=== PATIENT | female | born 1955 | race Two or more races ===

== ENCOUNTER 2024-04-21 12:08 | Inpatient (IN) | payer MEDICARE, MEDICAID ==
[~2024-04-21] VITALS: Ht 149.9 cm; Wt 57.9 kg
[2024-04-21 13:09] LABS: Basophils # (auto) 0 10 ^3/uL (0-0.2); Basophils % (auto) 0.4 % (0.0-2.0); Eosinophils # (auto) 0.1 10 ^3/uL (0-0.8); Eosinophils % (auto) 0.5 % (0.0-7.0); Hematocrit 45.6 % (36.0-46.0); Hemoglobin 15.4 g/dL (12.2-16.2); Lymphocytes # (auto) 0.9 10 ^3/uL (0.4-5.4); Lymphocytes % (auto) 9.1 % (10.0-50.0); Mean Corpuscular Hemoglobin 30.9 pg (28.0-32.0); Mean Corpuscular Hgb Conc. 33.7 g/dL (32.0-36.0); Mean Corpuscular Volume 91.7 fL (80.0-100.0); Monocytes # (auto) 0.6 10 ^3/uL (0-1.3); Monocytes % (auto) 6.3 % (0.0-12.0); Neutrophils # (auto) 8.6 10 ^3/uL (1.6-8.6); Neutrophils % (auto) 83.7 % (37.0-80.0); Platelet Count (auto) 411 10^3/uL (140-450); Red Blood Cells 4.97 10^6/uL (4.0-5.20); White Blood Cell 10.3 10^3/uL (4.4-10.8)
[2024-04-21] MEDS: SODIUM CHLORIDE 0.9% 500 ML IV ONE (13:10)
[2024-04-21 13:28] LABS: Alanine Aminotransferase 16 U/L (7-40); Albumin 4.8 g/dL (3.2-4.8); Alkaline Phosphatase 96 U/L (46-116); Anion Gap 11 (5-15); Aspartate Aminotransferase 11 U/L (13-40); BUN/Creatinine Ratio 8.5 (10.0-20.0); Bilirubin, Total 0.7 mg/dL (0.2-1.0); Blood Urea Nitrogen 13 mg/dL (9-23); Calcium 9.3 mg/dL (8.7-10.4); Carbon Dioxide 22 mmol/L (20-31); Chloride 104 mmol/L (98-107); Glucose 204 mg/dL (74-106); Potassium 4.1 mmol/L (3.5-5.1); Sodium 137 mmol/L (136-145); Total Protein 7.5 g/dL (5.7-8.2)
[2024-04-21 16:09] LABS: Urine Bacteria FEW /hpf (None Seen); Urine Blood 1+ /uL (Negative); Urine Clarity Ex.Turbid (Clear); Urine Color Light-Orange (Yellow); Urine Hyaline Cast MOD /lpf (0 - 2); Urine Mucus FEW (None Seen); Urine Protein, UAD 1+ (Negative); Urine Specific Gravity 1.017 (1.001-1.035); Urine Urobilinogen Normal (Negative); Urine WBC 692 /hpf (0 - 5); Urine WBC Clumps PRESENT /hpf (None Seen); Urine pH 5.5 (5.0-9.0)
[2024-04-21] MEDS: cefTRIAXone 1GM/50ML D5W 50 ML IV ONE (21:03)
[2024-04-21 21:14] VITALS: PULSE 62; RESP 16; O2SAT 94
[2024-04-21] MEDS ORDERED: traMADol HCL 50 MG TAB PO PRN (23:00)
[2024-04-21] MEDS ORDERED: MORPHINE SULFATE INJ 2 MG/ml SYRG IV PRN (23:00)
[2024-04-21] MEDS ORDERED: ACETAMINOPHEN 500 MG TAB PO PRN (23:00)
[2024-04-21 23:09] LABS: Amphetamine Screen, Urine Neg (NEGATIVE); Barbiturate Scree,Urine Neg (NEGATIVE); Benzodiazephine Screen, Urine Neg (NEGATIVE); Cocaine Screen, Urine Neg (NEGATIVE); Opiate Scree,Urine Pos (NEGATIVE); Phencyclidine Screen, Urine Neg (NEGATIVE)
[2024-04-21 23:10] LABS: Cannabinoid Screen, Urine Neg (NEGATIVE)
[2024-04-21 23:43] LABS: COVID19 ANTIGEN SOFIA FIA NEGATIVE (NEGATIVE)
[2024-04-21] MEDS: SODIUM CHLORIDE 0.9% 1,000 ML IV ONE (23:52)
[2024-04-22] MEDS ORDERED: DEXTROSE (50%) 50ML SYRG IV PRN (00:45)
[2024-04-22] MEDS: ACCU-CHEK COMFORT CURVE STRIP VI SCH (04:52)
[2024-04-22] MEDS: InsuLIN REG 1unit/0.01ml Soln (100units/ml) SC SCH (04:54)
[2024-04-22] MEDS: MAGNESIUM OXIDE 400 MG TAB PO ONE (04:57)
[2024-04-22 05:28] LABS: Anion Gap 11 (5-15); Carbon Dioxide 22 mmol/L (20-31); Chloride 106 mmol/L (98-107); Potassium 3.6 mmol/L (3.5-5.1); Sodium 139 mmol/L (136-145)
[2024-04-22 05:30] LABS: Calcium 9.2 mg/dL (8.7-10.4)
[2024-04-22 05:34] LABS: Glucose 181 mg/dL (74-106)
[2024-04-22 05:35] LABS: BUN/Creatinine Ratio 15.2 (10.0-20.0); Blood Urea Nitrogen 14 mg/dL (9-23)
[2024-04-22] MEDS: MAGNESIUM SULFATE 1GM/100ML 100 ML IV SCH ×3 (06:06→16:00)
[2024-04-22] MEDS: INSULIN LANTUS (GLARGINE) 1 /0.01ml (100units/ml) SC SCH (07:00)
[2024-04-22] MEDS: POTASSIUM EFFERVESENT TAB 25 MEQ GT ONE (08:57)
[2024-04-22] MEDS: ENOXAPARIN SOD 30 MG/0.3 ML SYRINGE SC ONE (08:57)
[2024-04-22] MEDS: PANTOPRAZOLE 40 MG TAB PO ONE (09:02)
[2024-04-22 09:25] VITALS: PULSE 129; RESP 22; O2SAT 94
[2024-04-22 10:01] LABS: Basophils # (auto) 0 10 ^3/uL (0-0.2); Basophils % (auto) 0.3 % (0.0-2.0); Eosinophils # (auto) 0 10 ^3/uL (0-0.8); Eosinophils % (auto) 0.6 % (0.0-7.0); Hematocrit 40.3 % (36.0-46.0); Hemoglobin 13.9 g/dL (12.2-16.2); Lymphocytes % (auto) 14.6 % (10.0-50.0); Mean Corpuscular Hemoglobin 31.8 pg (28.0-32.0); Mean Corpuscular Hgb Conc. 34.6 g/dL (32.0-36.0); Mean Corpuscular Volume 92.1 fL (80.0-100.0); Monocytes # (auto) 0.3 10 ^3/uL (0-1.3); Monocytes % (auto) 3.8 % (0.0-12.0); Neutrophils # (auto) 5.7 10 ^3/uL (1.6-8.6); Neutrophils % (auto) 80.7 % (37.0-80.0); Platelet Count (auto) 316 10^3/uL (140-450); Red Blood Cells 4.38 10^6/uL (4.0-5.20); White Blood Cell 7.1 10^3/uL (4.4-10.8)
[2024-04-22] MEDS: cefTRIAXone 1GM/50ML D5W 50 ML IV SCH (12:53)
[2024-04-22] MEDS: CYANOCOBALAMIN (B-12) 1000 MCG/1 ML VIAL IM ONE (16:42)
[2024-04-22] MEDS: ERGOCALCIFEROL 50,000 UNIT(1.25MG) CAP PO SCH (16:42)
[2024-04-22 21:20] VITALS: PULSE 115; RESP 14; O2SAT 96
[2024-04-22 23:26] VITALS: BP 136/91; PULSE 108; RESP 17; TEMP 98; O2SAT 95
[2024-04-23] VITALS (8 sets, daily range): BP systolic 125–156; BP diastolic 71–92; PULSE 58–123; RESP 18–19; TEMP 97.6–98.1; O2SAT 93–99
[2024-04-23] MEDS: PANTOPRAZOLE 40 MG TAB PO SCH (06:25)
[2024-04-23] MEDS: CYANOCOBALAMIN (B-12) 1000 MCG/1 ML VIAL IM SCH (10:55)
[2024-04-24 01:00] VITALS: BP 129/94; PULSE 69; RESP 19; TEMP 97; O2SAT 95
[2024-04-24 05:00] VITALS: BP 119/43; PULSE 82; RESP 17; TEMP 97.6; O2SAT 94
[2024-04-24 07:30] VITALS: PULSE 85; RESP 14; O2SAT 95
[2024-04-24 09:00] VITALS: BP 145/88; PULSE 144; RESP 17; TEMP 97.8; O2SAT 93
[2024-04-24] MEDS ORDERED: HYDR-4072 (09:08)
[2024-04-24] MEDS ORDERED: FLUT1AER3 PO (09:08)
[2024-04-24] MEDS ORDERED: METH2.5T62 PO (09:08)
[2024-04-24] MEDS ORDERED: FAMO20TA10 PO (09:08)
[2024-04-24] MEDS ORDERED: GABA800T97 PO (09:08)
[2024-04-24] MEDS ORDERED: INSUINJ37 SC (09:08)
[2024-04-24] MEDS ORDERED: CEFD300C2 PO (10:14)
[2024-04-24 11:45] VITALS: BP 148/86; PULSE 85; RESP 18; TEMP 99; O2SAT 99
[2024-04-24] MEDS: CYANOCOBALAMIN 500 MCG TAB PO SCH (11:53)
[2024-04-24 12:19] VITALS: BP 156/106; PULSE 99; RESP 17; TEMP 97.9; O2SAT 94
== END 2024-04-24 12:35 | disposition home or self-care (01) | DRG 391 ==
LOC: ER 12:08 → OVERFLOW 04-22 → WEST WING 04-22 22:19
PROVIDERS: ADMIT Internal Medicine; ATTEND Internal Medicine
DX: K52.9 Noninfective gastroenteritis and colitis, unspecified (principal); N17.0 Acute kidney failure with tubular necrosis; N30.00 Acute cystitis without hematuria; E83.42 Hypomagnesemia; E11.9 Type 2 diabetes mellitus without complications; F17.210 Nicotine dependence, cigarettes, uncomplicated; I10 Essential (primary) hypertension; M06.9 Rheumatoid arthritis, unspecified; Z20.822 Contact with and (suspected) exposure to COVID-19; J44.9 Chronic obstructive pulmonary disease, unspecified; Z98.51 Tubal ligation status
CPT/HCPCS: 36415; 71045; 74018; 80048; 82962; 83735; 87086; 93005; 96365; G0378; J1815

== ENCOUNTER 2024-06-14 08:19 | Inpatient (IN) | payer MEDICARE, MEDICAID ==
[~2024-06-14] VITALS: Ht 154.9 cm; Wt 61.2 kg
[~2024-06-14 08:19] MED LIST: CEFD300C2 PO; FAMO20TA10 PO; FLUT1AER3 PO; GABA800T97 PO; HYDR-4072; INSUINJ37 SC; METH2.5T62 PO
[2024-06-14 09:00] VITALS: PULSE 135; RESP 16; O2SAT 90
--- NOTE | 2024-06-14 10:05 | ED.PDOC ---
Musculoskeletal HPI Comments 68 year old female EMILY presents to the ED with chief complaint of left knee pain. Patient reports that when getting out of bed this morning, her left knee had locked up and she slid off of her bed. Patient relays that since then, she has had pain to her left knee and is unable to move it well. Patient states she also has not taken any of her daily medication. Patient denies any numbness, weakness, dizziness, N/V, chest pain, or SOB. Chief Complaint: Fall Injury Time Seen by MD: 10:00 Primary Care Provider: UNKNOWN Reviewed Notes: Nurses Notes, Medications, Allergies Allergies: Coded Allergies: NO KNOWN ALLERGIES (Unverified , 04/21/24) Home Meds Active Scripts Cefdinir (Cefdinir) 300 Mg Cap, 1 CAP PO BID for 5 Days, #14 CAP Prov:MARIA LUZ BROCK RESIDENT 04/24/24 Reported Medications Insulin Glargine (Lantus Solostar) 100 Unit/Ml Inj, 38 UNIT SC 04/24/24 Wxfhdrsakvs-Nziphnazjwgs-Oaanf (Trelegy Ellipta 100-62.5-25 Mcg/INH) 1 Aer Aer, 1 PUFF PO DAILY 04/24/24 Methotrexate (Methotrexate Sodium) 2.5 Mg Tab, 4 TAB PO QWEEKLY 04/24/24 Famotidine (PEPCID TABLET) 20 Mg Tb, 1 TAB PO DAILYPRN PRN for indigestion 04/24/24 Hydrocodone-Acetaminophen (Hydrocodone/Acetaminophen 10-325 mg) 1 Tab Tab 04/24/24 Gabapentin (Gabapentin) 800 Mg Tab, 1 TAB PO TID 04/24/24 Information Source: Patient Mode of Arrival: EMS Location: Left Extremity Location: Knee Timing: Hours Prehospital treatment: None Severity: Moderate Able to Move Extremity: Yes Bear Weight: Limited Pain: Moderate Mechanism: Spontaneous Circumstances: Fall Onset of Symptoms: Spontaneous Symptoms: Pain DVT Risk Factors: NONE Last Tetanus: Unknown Associated signs and symptoms: Knee pain Past Medical History PAST MEDICAL HISTORY: Arthritis, DM, HTN Surgical History: Tubal Ligation Surgical History (Other): Lt toe amputation, Open heart surgery HOME AGENT History: No Pertinent HOME AGENT History Family History Family History: Unknown Social History Smoker: Cigarettes, Less Than 1 Pack/Day Alcohol: Denies ETOH Use Drugs: Denies Drug Use Lives In: Home Constitutional: denies: chills, diaphoresis, fatigue, fever, malaise, sweats, weakness, others EENTM: denies: blurred vision, double vision, ear bleeding, ear discharge, ear drainage, ear pain, ear ringing, eye pain, eye redness, hearing loss, mouth pain, mouth swelling, nasal discharge, nose bleeding, nose congestion, nose pain, photophobia, tearing, throat pain, throat swelling, voice changes, others Respiratory: denies: cough, hemoptysis, orthopnea, SOB at rest, shortness of breath, SOB with excertion, stridor, wheezing, others Cardiovascular: denies: chest pain, dizzy spells, diaphoresis, Dyspnea on exertion, edema, irregular heart beat, left arm pain, lightheadedness, palpitations, PND, syncope, others Gastrointestinal: denies: abdomen distended, abdominal pain, blood streaked bowels, constipated, diarrhea, dysphagia, difficulty swallowing, hematemesis, melena, nausea, poor appetite, poor fluid intake, rectal bleeding, rectal pain, vomiting, others Genitourinary: denies: abnormal vagina bleeding, burning, dyspareunia, dysuria, flank pain, frequency, hematuria, incontinence, pain, , vagina discharge, urgency, others Neurological: denies: dizziness, fainting, headache, left sided numbness, left sided weakness, numbness, paresthesia, pre-existing deficit, right sided numbness, right sided weakness, seizure, speech problems, tingling, tremors, weakness, others Musculoskeletal: reports: others (Left knee pain); denies: back pain, gout, joint pain, joint swelling, muscle pain, muscle stiffness, neck pain Integumetry: denies: bruises, change in color, change in hair/nails, dryness, laceration, lesions, lumps, rash, wounds, others Allergic/Immunocompromised: denies: Difficulty Healing, Frequent Infections, Hives, Itching, others Hematologic/Lymphatic: denies: anemia, blood clots, easy bleeding, easy bruising, swollen glands, others Endocrine: denies: excessive hunger, excessive sweating, excessive thirst, excessive urination, flushing, intolerance to cold, intolerance to heat, unexplained weight gain, unexplained weight loss, others Psychiatric: denies: anxiety, bipolar disorder, depression, hopeless, panic disorder, schizophrenia, sleepless, suicidal, others All Other Systems: Reviewed and Negative Physical Exam General Appearance: Mild Distress, Normal HEENT: Normal ENT Inspection, PERRL/EOMI, Other (Dry mucosa) Neck: Full Range of Motion, Non-Tender, Normal, Normal Inspection Respiratory: Chest Non-Tender, Lungs Clear, No Accessory Muscle Use, No Respiratory Distress, Normal Breath Sounds Cardiovascular: No Edema, No JVD, No Murmur, No Gallop, Normal Peripheral Pulses, Regular Rate/Rhythm Breast Exam: Deferred Gastrointestinal: No Organomegaly, Non Tender, No Pulsatile Mass, Normal Bowel Sounds, Soft Genitalia: Deferred Pelvic: Deferred Rectal: Deferred Extremities: No calf tenderness, Normal capillary refill, Normal inspection, Normal range of motion, Non-tender, No pedal edema Musculoskeletal : Location: Left Extremity Location: Knee Apperance: Swelling, Limited ROM, Tenderness: Moderate Neurologic: Alert, associate program manager II-XII nml as Tested, No Motor Deficits, Normal Affect, Normal Mood, No Sensory Deficits Cerebellar Function: Normal Reflexes: Normal Skin: Dry, Normal Color, Warm Peripheral Pulses: 1+ carotid (R), 1+ carotid (L) Lymphatic: No Adenopathy Was a procedure done? Was a procedure done?: No EKG EKG : Pulse Rate (adult): 137 Melvin: Normal Cardiac Rhythm: Afib Block: RBBB Differential Diagnosis EXT Differential Diagnosis: Fracture, Sprain, DJD, Arthritis X-Ray, Labs, Meds, VS Vital Signs Date Time Temp Pulse Resp B/P (MAP) Pulse Ox O2 Delivery O2 Flow Rate FiO2 06/14/24 15:00 98.5 140 15 120/78 (92) 92 98.5 06/14/24 13:00 141 13 112/78 (89) 90 06/14/24 12:00 142 06/14/24 11:20 137 06/14/24 11:00 137 22 108/72 (84) 90 06/14/24 09:00 135 16 90 Room Air* 0 21 06/14/24 09:00 97.4 135 16 106/57 (73) 90 97.4 06/14/24 08:29 138 06/14/24 08:22 97.4 136 16 122/88 (99) 91 Lab Test 06/14/24 12:45 06/14/24 10:45 06/14/24 10:16 Range/Units Urine Color Yellow Yellow Urine Clarity Clear Clear Urine pH 5.5 5.0-9.0 Urine Specific [place] 1.031 1.001-1.035 Urine Protein 1+ H Negative Urine Ketones Negative Negative Urine Blood Negative Negative /uL Urine Nitrite Negative Negative Urine Bilirubin Negative Negative Urine Urobilinogen 2 H Negative mg/dL Urine Leukocyte Esterase Negative Negative /uL Urine RBC 1 0 - 4 /hpf Urine WBC 2 0 - 5 /hpf Urine Squamous Epithelial Cells Few <5 /hpf Urine Bacteria None seen None Seen /hpf Urine Hyaline Casts Few 0 - 2 /lpf Urine Mucus Few None Seen Urine Glucose Normal Normal mg/dL White Blood Count 6.4 4.4-10.8 10^3/uL Red Blood Count 4.23 4.0-5.20 10^6/uL Hemoglobin 13.6 12.2-16.2 g/dL Hematocrit 40.9 36.0-46.0 % Mean Corpuscular Volume 96.6 80.0-100.0 fL Mean Corpuscular Hemoglobin 32.1 H 28.0-32.0 pg Mean Corpuscular Hemoglobin Concent 33.3 32.0-36.0 g/dL Red Cell Distribution Width 16.1 H 11.8-14.3 % Platelet Count 331 140-450 10^3/uL Mean Platelet Volume 7.8 6.9-10.8 fL Neutrophils (%) (Auto) 70.0 37.0-80.0 % Lymphocytes (%) (Auto) 19.1 10.0-50.0 % Monocytes (%) (Auto) 10.0 0.0-12.0 % Eosinophils (%) (Auto) 0.6 0.0-7.0 % Basophils (%) (Auto) 0.3 0.0-2.0 % Neutrophils # (Auto) 4.5 1.6-8.6 10 ^3/uL Lymphocytes # (Auto) 1.2 0.4-5.4 10 ^3/uL Monocytes # (Auto) 0.6 0-1.3 10 ^3/uL Eosinophils # (Auto) 0 0-0.8 10 ^3/uL Basophils # (Auto) 0 0-0.2 10 ^3/uL Nucleated Red Blood Cells 0.0 % D-Dimer, Quantitative 0.72 H 0.0-0.49 mg/L FEU Sodium Level 141 136-145 mmol/L Potassium Level 4.0 3.5-5.1 mmol/L Chloride Level 108 H 98-107 mmol/L Carbon Dioxide Level 24 20-31 mmol/L Anion Gap 9 5-15 Blood Urea Nitrogen 10 9-23 mg/dL Creatinine 0.76 0.550-1.02 mg/dL Glomerular Filtration Rate Calc 84 >90 mL/min BUN/Creatinine Ratio 13.2 10.0-20.0 Serum Glucose 102 74-106 mg/dL Calcium Level 9.2 8.7-10.4 mg/dL Magnesium Level 1.8 1.6-2.6 mg/dL Total Bilirubin 0.4 0.2-1.0 mg/dL Aspartate Amino Transferase (AST) 12 L 13-40 U/L Alanine Aminotransferase (ALT) 14 7-40 U/L Alkaline Phosphatase 98 46-116 U/L Total Protein 6.6 5.7-8.2 g/dL Albumin 4.3 3.2-4.8 g/dL POC Glucose 107 H 70-106 mg/dl Current Medications Medications (Trade) Dose Ordered Sig/Celine Route Start Time Stop Time Status Last Admin Sodium Chloride 1,000 ml @ 150 mls/hr Q6H40M ONCE IV 06/14/24 10:00 06/14/24 16:39 06/14/24 14:00 Left Knee XR: FINDINGS/IMPRESSION: : There is no evidence of acute fracture or dislocation. Severe tricompartmental degenerative changes. X-Ray, Labs, Meds, VS Comment Course in the emergency department eventful patient had a fall this morning because her knee hurt and sometimes she fall because of the EKG shows atrial fibrillation at 137 with right bundle-branch block Left knee shows severe tricompartment DJD CBC normal D-dimer 0.72 CMP ALL NORMAL URINE NEGATIVE MAGNESIUM 1.8 PATIENT WILL SENT FOR A CT ANGIOGRAM Angiogram does not show PE shows no PE atelectasis and consolidations to both lung bases Patient will be admitted for further care Images Reviewed?: Images reviewed and evaluated by me Time of 1ST Reevaluation: 11:00 Reevaluation 1ST: Unchanged Patient Education/Counseling: Diagnosis, Treatment Family Education/Counseling: No Family Present Departure 1 Departure Time of Disposition: 16:27 Impression: Primary Impression: Fall at home Qualified Codes: W19.XXXA - Unspecified fall, initial encounter; Y92.009 - Unspecified place in unspecified non-institutional (private) residence as the place of occurrence of the external cause Additional Impressions: Arthritis of left knee Paroxysmal atrial fibrillation Right lower lobe pneumonia Qualified Codes: J18.9 - Pneumonia, unspecified organism Disposition: ADMITTED INPATIENT Admit to: Tele Condition: Serious Critical Care Note Critical Care Time?: No Stability Stability form required: Yes Unstable for transfer: Telemetry monitoring (Telemetry monitoring required), Requires medication (Requires Med for stabilization) Heart Score Heart Score: Heart Score Response (Comments) Value History Moderate Suspicious 1 EKG Repolarization Disturb 1 Age >65 2 Risk Factors >3 or Hx ASHD 2 Troponin N/A 0 Total 6 I personally scribed for TAMIKO MOTA MD ([email or web address]) on 06/14/24 at 10:05. Electronically submitted by Lauri Goss ([email or web address]). I personally scribed for TAMIKO MOTA MD ([email or web address]) on 06/14/24 at 11:38. Electronically submitted by Lauri Goss ([email or web address]). TAMIKO MOTA MD Jun 14, 2024 10:05
--- NOTE | 2024-06-14 10:37 | DVH ---
CLINICAL INDICATION: Trauma Fall TECHNIQUE: XY L KNEE 3V XRAY Comparison: None FINDINGS/IMPRESSION: : There is no evidence of acute fracture or dislocation. Severe tricompartmental degenerative changes.
[2024-06-14 11:10] LABS: Basophils # (auto) 0 10 ^3/uL (0-0.2); Basophils % (auto) 0.3 % (0.0-2.0); Eosinophils # (auto) 0 10 ^3/uL (0-0.8); Eosinophils % (auto) 0.6 % (0.0-7.0); Hematocrit 40.9 % (36.0-46.0); Hemoglobin 13.6 g/dL (12.2-16.2); Lymphocytes # (auto) 1.2 10 ^3/uL (0.4-5.4); Lymphocytes % (auto) 19.1 % (10.0-50.0); Mean Corpuscular Hemoglobin 32.1 pg (28.0-32.0); Mean Corpuscular Hgb Conc. 33.3 g/dL (32.0-36.0); Mean Corpuscular Volume 96.6 fL (80.0-100.0); Monocytes # (auto) 0.6 10 ^3/uL (0-1.3); Neutrophils # (auto) 4.5 10 ^3/uL (1.6-8.6); Platelet Count (auto) 331 10^3/uL (140-450); Red Blood Cells 4.23 10^6/uL (4.0-5.20); Red Cell Distribution Width 16.1 % (11.8-14.3); White Blood Cell 6.4 10^3/uL (4.4-10.8)
[2024-06-14 11:29] LABS: Alanine Aminotransferase 14 U/L (7-40); Alkaline Phosphatase 98 U/L (46-116); Anion Gap 9 (5-15); BUN/Creatinine Ratio 13.2 (10.0-20.0); Blood Urea Nitrogen 10 mg/dL (9-23); Calcium 9.2 mg/dL (8.7-10.4); Carbon Dioxide 24 mmol/L (20-31); Chloride 108 mmol/L (98-107); Glucose 102 mg/dL (74-106); Magnesium 1.8 mg/dL (1.6-2.6); Sodium 141 mmol/L (136-145)
[2024-06-14 11:30] LABS: Albumin 4.3 g/dL (3.2-4.8); Bilirubin, Total 0.4 mg/dL (0.2-1.0); Total Protein 6.6 g/dL (5.7-8.2)
[2024-06-14 11:32] LABS: Aspartate Aminotransferase 12 U/L (13-40)
[2024-06-14 12:56] LABS: Urine Bacteria None Seen /hpf (None Seen)
[2024-06-14 13:11] LABS: Urine Blood Negative /uL (Negative); Urine Clarity Clear (Clear); Urine Color Yellow (Yellow); Urine Hyaline Cast FEW /lpf (0 - 2); Urine Mucus FEW (None Seen); Urine Protein, UAD 1+ (Negative); Urine Specific Gravity 1.031 (1.001-1.035); Urine Urobilinogen 2 mg/dL (Negative); Urine WBC 2 /hpf (0 - 5); Urine pH 5.5 (5.0-9.0)
[2024-06-14] MEDS: SODIUM CHLORIDE 0.9% 1,000 ML IV ONE (14:00)
[2024-06-14] MEDS: IOHEXOL 350 MG/ML 100ML IJ ONE (14:44)
--- NOTE | 2024-06-14 15:59 | DVH ---
CTA Chest with intravenous contrast INDICATION: PULMONARY EMBOLISM COMPARISON: None TECHNIQUE: Multidetector spiral CTA of the chest was performed of the chest with intravenous contrast . PULMONARY ANGIOGRAPHY PROTOCOL was utilized using a bolus-tracking technique centered on the main p ulmonary artery. Axial, coronal and sagittal multiplanar and MIP reformats were performed. CONTRAST: Type of contrast: Omni 350 Contrast injected: 79 ml Radiation dose : Chest: CTDI volume is 32 mGy. Dose-length product is 512 mGy*cm The dose indicators for CT are the volume computed Tomography (CT) dose Index (CTDIvol) and the dose Length product (DLP), and are measured in units of mGy and mGy-cm, respectively. These indicators are not patient dose, but values generated from the CT scanner acquisition factors. The report includes radiation exposure data for exposures received during this examination. Findings: Pulmonary artery: No pulmonary embolism Lower neck: Normal thyroid. Lungs: There is mild atelectasis and consolidation in the lung bases right greater than left. Heart/Vascular Structures: Normal heart size. No pericardial effusion. Lymph Nodes: Subcentimeter mediastinal lymph nodes are noted. Pleura: Possible trace right pleural effusion. Musculoskeletal: No acute osseous abnormality. Soft tissues: Normal. Upper abdomen: Limited portions of the upper abdomen are unremarkable. IMPRESSION: 1. No pulmonary embolism. 2. Mild bibasilar atelectasis and consolidation right greater than left. HS:Y
[2024-06-14] MEDS: METOPROLOL TARTRATE 1MG/1ML-5ML VIAL IV ONE (16:54)
[2024-06-14] MEDS ORDERED: ACETAMINOPHEN 325 MG TAB PO PRN (18:45)
[2024-06-14] MEDS ORDERED: DOCUSATE SOD 100 MG CAP PO PRN (18:45)
[2024-06-14] MEDS ORDERED: DEXTROSE (50%) 50ML SYRG IV PRN (18:45)
[2024-06-14] MEDS ORDERED: AMLO1TAB23 PO (18:45)
[2024-06-14] MEDS ORDERED: MORPHINE SULFATE INJ 2 MG/ml SYRG IV PRN (18:45)
[2024-06-14] MEDS ORDERED: NITROGLYCERIN 0.4 MG SL TAB SL PRN (18:45)
[2024-06-14] MEDS ORDERED: ONDANSETRON HCL 4 MG/2 ML VIAL IV PRN (18:45)
--- NOTE | 2024-06-14 19:11 | DVHHP2 ---
History of Present Illness Reason for Visit: S/P fall with left knee pain History of Present Illness Kelly Smiley is a 68-year-old female with past medical history of rheumatoid arthritis, diabetes, and hypertension, who comes in for left knee pain S/P fall. Patient states that she sent to get out of bed last night when she slipped due to her fuzzy socks and hit her knee. Denies hitting her head or loss of consciousness. Patient states that she was not able to get up after the fall due to left knee pain, and she did not want to wake up her family so she stayed on the floor all night. Patient was found to be in atrial fibrillation with RVR when she arrived at the hospital. Patient states that she has never had atrial fibrillation before. ER gave IV metoprolol that lowered her heart rate to the low 100s, but remained atrial fibrillation. Patient denies any chest pain, shortness of breath, or palpitations. Cardiovascular: HTN Rheumatologic: Rheumatoid arthritis Endocrine: Diabetes Past Surgical History: CABG Family History: None Smoke: 1 pack per day ALCOHOL: none Drugs: None Lives: with Family Domestic Violence: Neg Review of Systems Constitutional: No: Fever, Chills, Sweats, Weakness, Malaise, Other Eyes: No: Pain, Vision change, Conjunctivae inflammation, Eyelid inflammation, Other, Redness ENT: No: Ear pain, Ear discharge, Nose pain, Nose discharge, Nose congestion, Mouth pain, Mouth swelling, Throat pain, Throat swelling, Other Respiratory: No: Cough, Dry, Shortness of breath, SOB with excertion, Wheezing, Hemoptysis, Pleuritic Pain, Sputum, Wheezing, Other Cardiovascular: No: Chest Pain, Palpitations, Orthopnea, Paroxysmal Noc. Dyspnea, Edema, Lt Headedness, Other Gastrointestinal: No: Nausea, Vomiting, Abdominal Pain, Diarrhea, Constipation, Melena, Hematochezia, Other Genitourinary: No Dysuria, No Frequency, No Incontinence, No Hematuria, No Retention, No Other Musculoskeletal: leg pain (left knee pain, S/P fall); No: other, neck pain, shoulder pain, arm pain, back pain, hand pain, foot pain Skin: No: Rash, Lesions, Jaundice, Bruising, Other Neurological: No: Weakness, Numbness, Incoordination, Change in speech, Confusion, Seizures, Other Allergies: Coded Allergies: NO KNOWN ALLERGIES (Unverified , 04/21/24) Medications Current Medications Medications Dose Ordered Sig/Celine Route Start Time Stop Time Status Last Admin Dose Admin Sodium Chloride 10 ml Q8HR IV 06/14/24 22:00 UNV Acetaminophen/ Hydrocodone Bitart 1 tab Q4HP PRN PO 06/14/24 18:45 UNV Ondansetron HCl 4 mg Q4HP PRN IV 06/14/24 18:45 UNV Docusate Sodium 100 mg BIDPRN PRN PO 06/14/24 18:45 UNV Acetaminophen 650 mg Q6HP PRN PO 06/14/24 18:45 UNV Nitroglycerin 0.4 mg Q5MINP PRN SL 06/14/24 18:45 UNV Morphine Sulfate 2 mg Q30M PRN IV 06/14/24 18:45 UNV Diagnostic Test (Pha) 1 strip ACHS 06/14/24 22:00 UNV Insulin Human Regular HS SC 06/14/24 22:00 UNV Insulin Human Regular AC SC 06/15/24 07:00 UNV Dextrose 50 ml UD PRN IV 06/14/24 18:45 UNV Patient Own Medication 1 puff DAILY PO 06/15/24 10:00 UNV Patient Own Medication 1 tab TID PO 06/14/24 22:00 UNV Insulin Glargine 38 units HS SC 06/14/24 22:00 UNV Exam Vital Signs Vital Signs Date Time Temp Pulse Resp B/P (MAP) Pulse Ox O2 Delivery O2 Flow Rate FiO2 06/14/24 17:12 95 14 122/83 (96) 94 06/14/24 15:00 98.5 98.5 06/14/24 09:00 Room Air* 0 21 General Appearance: Cooperative, mild distress, Other (drowsy) HEENT: Atraumatic, PERRLA Respiratory: Clear to auscultation Cardiovascular: Other (Tachycardic, atrial fibrillation) Abdominal: Normal bowel sounds, Soft, No tenderness Extremities: No clubbing, No cyanosis, No edema, Normal pulses, Other (left knee pain) Skin: No rashes, No breakdown, No significant lesion Neuro: Normal speech Psych/Mental Status: Mental status NL, Mood NL Labs/Xrays Labs Test 06/14/24 12:45 06/14/24 10:45 06/14/24 10:16 Range/Units Urine Color Yellow Yellow Urine Clarity Clear Clear Urine pH 5.5 5.0-9.0 Urine Specific [place] 1.031 1.001-1.035 Urine Protein 1+ H Negative Urine Ketones Negative Negative Urine Blood Negative Negative /uL Urine Nitrite Negative Negative Urine Bilirubin Negative Negative Urine Urobilinogen 2 H Negative mg/dL Urine Leukocyte Esterase Negative Negative /uL Urine RBC 1 0 - 4 /hpf Urine WBC 2 0 - 5 /hpf Urine Squamous Epithelial Cells Few <5 /hpf Urine Bacteria None seen None Seen /hpf Urine Hyaline Casts Few 0 - 2 /lpf Urine Mucus Few None Seen Urine Glucose Normal Normal mg/dL White Blood Count 6.4 4.4-10.8 10^3/uL Red Blood Count 4.23 4.0-5.20 10^6/uL Hemoglobin 13.6 12.2-16.2 g/dL Hematocrit 40.9 36.0-46.0 % Mean Corpuscular Volume 96.6 80.0-100.0 fL Mean Corpuscular Hemoglobin 32.1 H 28.0-32.0 pg Mean Corpuscular Hemoglobin Concent 33.3 32.0-36.0 g/dL Red Cell Distribution Width 16.1 H 11.8-14.3 % Platelet Count 331 140-450 10^3/uL Mean Platelet Volume 7.8 6.9-10.8 fL Neutrophils (%) (Auto) 70.0 37.0-80.0 % Lymphocytes (%) (Auto) 19.1 10.0-50.0 % Monocytes (%) (Auto) 10.0 0.0-12.0 % Eosinophils (%) (Auto) 0.6 0.0-7.0 % Basophils (%) (Auto) 0.3 0.0-2.0 % Neutrophils # (Auto) 4.5 1.6-8.6 10 ^3/uL Lymphocytes # (Auto) 1.2 0.4-5.4 10 ^3/uL Monocytes # (Auto) 0.6 0-1.3 10 ^3/uL Eosinophils # (Auto) 0 0-0.8 10 ^3/uL Basophils # (Auto) 0 0-0.2 10 ^3/uL Nucleated Red Blood Cells 0.0 % D-Dimer, Quantitative 0.72 H 0.0-0.49 mg/L FEU Sodium Level 141 136-145 mmol/L Potassium Level 4.0 3.5-5.1 mmol/L Chloride Level 108 H 98-107 mmol/L Carbon Dioxide Level 24 20-31 mmol/L Anion Gap 9 5-15 Blood Urea Nitrogen 10 9-23 mg/dL Creatinine 0.76 0.550-1.02 mg/dL Glomerular Filtration Rate Calc 84 >90 mL/min BUN/Creatinine Ratio 13.2 10.0-20.0 Serum Glucose 102 74-106 mg/dL Calcium Level 9.2 8.7-10.4 mg/dL Magnesium Level 1.8 1.6-2.6 mg/dL Total Bilirubin 0.4 0.2-1.0 mg/dL Aspartate Amino Transferase (AST) 12 L 13-40 U/L Alanine Aminotransferase (ALT) 14 7-40 U/L Alkaline Phosphatase 98 46-116 U/L Troponin I High Sensitivity 8 </=34 ng/L Total Protein 6.6 5.7-8.2 g/dL Albumin 4.3 3.2-4.8 g/dL POC Glucose 107 H 70-106 mg/dl TECHNIQUE: XY L KNEE 3V XRAY Comparison: None FINDINGS/IMPRESSION: : There is no evidence of acute fracture or dislocation. Severe tricompartmental degenerative changes. CTA Chest with intravenous contrast CONTRAST: Type of contrast: Omni 350 Contrast injected: 79 ml Radiation dose : Chest: CTDI volume is 32 mGy. Dose-length product is 512 mGy*cm The dose indicators for CT are the volume computed Tomography (CT) dose Index (CTDIvol) and the dose Length product (DLP), and are measured in units of mGy and mGy-cm, respectively. These indicators are not patient dose, but values generated from the CT scanner acquisition factors. The report includes radiation exposure data for exposures received during this examination. Findings: Pulmonary artery: No pulmonary embolism Lower neck: Normal thyroid. Lungs: There is mild atelectasis and consolidation in the lung bases right greater than left. Heart/Vascular Structures: Normal heart size. No pericardial effusion. Lymph Nodes: Subcentimeter mediastinal lymph nodes are noted. Pleura: Possible trace right pleural effusion. Musculoskeletal: No acute osseous abnormality. Soft tissues: Normal. Upper abdomen: Limited portions of the upper abdomen are unremarkable. IMPRESSION: 1. No pulmonary embolism. 2. Mild bibasilar atelectasis and consolidation right greater than left. Assessment/Plan Assessment/Plan Assessment: Atrial fibrillation, new onset, with RVR, Diabetes, Hypertension, Rheumatoid arthritis, Plan: Admit to Tele, Cardiology consult, Amiodarone drip, Physical therapy evaluation and treat, Accu checks Q AC&HS with sliding scale, Home medications reconciled, Plan discussed with: Patient My Orders Orders - ANGELA HOPPER PIER RUNNER Procedure Category Date Status Time Admit ADMIT 06/14/24 Transmitted 18:33 Code Status CODE 06/14/24 Transmitted 18:33 2 Gm Sodium Diet DIET 06/15/24 Transmitted Breakfast Sodium Chloride Lock PHA 06/14/24 Logged (Saline Lock Ns) 22:00 Hydrocodone-Acet PHA 06/14/24 Logged 5/325mg Tab (Almond 18:45 Ondansetron Hcl PHA 06/14/24 Logged (Zofran) 18:45 Docusate Sodium PHA 06/14/24 Logged Capsule (Colace 18:45 Fall Risk Precautions [facility] 06/14/[address] 18:33 Complete Blood Count LAB 06/15/24 Verified 04:00 Comprehensive LAB 06/15/24 Verified Metabolic Panel 04:00 Pt Request For Service PT 06/14/24 Logged 18:33 Condition: Serious [facility] 06/14/24 In Process 18:33 Acetaminophen Tablet [facility] 06/14/24 Logged (Tylenol Tablet) 18:45 Nitroglycerin PHA 06/14/24 Logged Sublingual (Ntrostat 18:45 Morphine Sulfate PHA 06/14/24 Logged Injection 18:45 Stat Ekg For Chest [facility] 06/14/24 In Process Pain 18:33 Notify Md Of Changes [facility] 06/14/24 In Process From Base 18:33 Local [place] Truck Driver For [facility] 06/14/24 In Process 24 Hours 18:33 Emergency Dysrhythmia [facility] 06/14/24 In Process Protocol 18:33 Rhythm Strips Once [facility] 06/14/24 In Process Every Shift 18:33 Oxygen By Nasal RT 06/14/24 Transmitted Cannula 18:33 * Cardiology Consult CONS 06/14/24 Transmitted 18:33 Glucose Blood PHA 06/14/24 Logged (Accu-Chek Comfort 22:00 Insulin R (Human) PHA 06/14/24 Logged (Insulin R) 22:00 Insulin R (Human) PHA 06/15/24 Logged (Insulin R) 07:00 Dextrose 50% Syringe PHA 06/14/24 Logged 18:45 (NF) PHA 06/15/24 Transmitted Iwcrdiuxyge-Iueoucdniqig-Axoql 10:00 (Nf) Gabapentin PHA 06/14/24 Transmitted 22:00 Insulin Lantus PHA 06/14/24 Transmitted (Glargine) (Lantus) 22:00 (Nf) Amlodipine PHA 06/15/24 Verified Besylate 10:00 Date of Service: Jun 14, 2024 Billing Provider: ANGELA HOPPER Common Visit Codes: [id number] INP/OBS CARE (MOD) ANGELA HOPPER Jun 14, 2024 19:11
[2024-06-14] MEDS: AMIODARONE BOLUS KIT 100 ML IV ONE (19:40)
[2024-06-14 20:00] VITALS: PULSE 139; RESP 17; O2SAT 98
[2024-06-14] MEDS: AMIODARONE 450mg/250ml AE 250 ML IV SCH (20:45)
--- NOTE | 2024-06-14 23:18 | DVHINCON2 ---
Date of service: Jun 14, 2024 Referring Physician Renny Reason for Consultation A-fib History of Present Illness This is a 68 year old female with a PMH of Arthritis, DM, HTN who presents to the ED with a complaint of left knee pain. Patient reports that when getting out of bed this morning, her left knee had locked up and she slid off of her bed. Patient relays that since then, she has had pain to her left knee and has decreased ROM. Patient states she also has not taken any of her daily medication. D-Dimer 0.72. Troponin is negative.EKG: A Fib at 137. Left knee x- ray shows severe tricompartmental degenerative changes. CTA chest is negative for PE There is mild bibasilar atelectasis and consolidation right greater than left. Patient was admitted to the hospital. I am asked to consult on this pat ient. Family History: FH: brain tumor G8 SISTER FH: breast cancer G8 SISTER FH: cancer G8 MOTHER Allergies: Coded Allergies: NO KNOWN ALLERGIES (Unverified , 04/21/24) Home Meds Active Scripts Cefdinir (Cefdinir) 300 Mg Cap, 1 CAP PO BID for 5 Days, #14 CAP Prov:MARIA LUZ BROCK RESIDENT 04/24/24 Reported Medications Amlodipine Besylate (Amlodipine Besylate) 10 Mg Tab, 1 TAB PO DAILY 06/14/24 Insulin Glargine (Lantus Solostar) 100 Unit/Ml Inj, 38 UNIT SC 04/24/24 Sofwsavnflh-Rublkwiobxmw-Cdque (Trelegy Ellipta 100-62.5-25 Mcg/INH) 1 Aer Aer, 1 PUFF PO DAILY 04/24/24 Methotrexate (Methotrexate Sodium) 2.5 Mg Tab, 4 TAB PO QWEEKLY 04/24/24 Famotidine (PEPCID TABLET) 20 Mg Tb, 1 TAB PO DAILYPRN PRN for indigestion 04/24/24 Hydrocodone-Acetaminophen (Hydrocodone/Acetaminophen 10-325 mg) 1 Tab Tab 04/24/24 Gabapentin (Gabapentin) 800 Mg Tab, 1 TAB PO TID 04/24/24 Current Medications Current Medications Medications (Trade) Dose Ordered Sig/Celine Route PRN Reason Start Time Stop Time Status Last Admin Sodium Chloride (Saline Lock Ns) 10 ml Q8HR IV 06/14/24 22:00 Acetaminophen/ Hydrocodone Bitart ([place] 5/325MG Tab) 1 tab Q4HP PRN PO MODERATE PAIN (4-6 PAIN SCALE) 06/14/24 18:45 Ondansetron HCl (Zofran) 4 mg Q4HP PRN IV NAUSEA / VOMITING 06/14/24 18:45 Docusate Sodium (Colace Capsule) 100 mg BIDPRN PRN PO FOR CONSTIPATION 06/14/24 18:45 Acetaminophen (Tylenol Tablet) 650 mg Q6HP PRN PO PAIN SCALE 1-3 OR TEMP>100.4 06/14/24 18:45 Nitroglycerin (Ntrostat Sublingual) 0.4 mg Q5MINP PRN SL FOR CHEST PAIN 06/14/24 18:45 Morphine Sulfate 2 mg Q30M PRN IV FOR CHEST PAIN 06/14/24 18:45 Diagnostic Test (Pha) (Accu-Chek Comfort Curve T) 1 strip ACHS 06/14/24 22:00 Insulin Human Regular (InsuLIN R) HS SC 06/14/24 22:00 Insulin Human Regular (InsuLIN R) AC SC 06/15/24 07:00 Dextrose 50 ml UD PRN IV Blood Sugar LESS THAN 60 06/14/24 18:45 Patient Own Medication 1 puff DAILY PO 06/15/24 10:00 Gabapentin (Neurontin Capsule) 800 mg TID PO 06/14/24 22:00 Insulin Glargine (Lantus) 38 units HS MT 06/14/24 22:00 Amlodipine Besylate (Norvasc Tablet) 10 mg DAILY PO 06/15/24 10:00 Amiodarone HCl 250 ml @ 33.333 mls/ hr Q7H30M IV 06/14/24 19:00 06/15/24 00:59 Amiodarone HCl 250 ml @ 16.667 mls/ hr Q15H IV 06/15/24 01:00 Review of Systems Constitutional: denies: chills, diaphoresis, fatigue, fever, malaise, sweats, weakness, others EENTM: denies: blurred vision, double vision, ear bleeding, ear discharge, ear drainage, ear pain, ear ringing, eye pain, eye redness, hearing loss, mouth pain, mouth swelling, nasal discharge, nose bleeding, nose congestion, nose pain, photophobia, tearing, throat pain, throat swelling, voice changes, others Respiratory: denies: cough, hemoptysis, orthopnea, SOB at rest, shortness of breath, SOB with excertion, stridor, wheezing, others Cardiovascular: denies: chest pain, dizzy spells, diaphoresis, Dyspnea on exertion, edema, irregular heart beat, left arm pain, lightheadedness, palpitations, PND, syncope, others Gastrointestinal: denies: abdomen distended, abdominal pain, blood streaked bowels, constipated, diarrhea, dysphagia, difficulty swallowing, hematemesis, melena, nausea, poor appetite, poor fluid intake, rectal bleeding, rectal pain, vomiting, others Genitourinary: denies: abnormal vagina bleeding, burning, dyspareunia, dysuria, flank pain, frequency, hematuria, incontinence, pain, , vagina discharge, urgency, others Neurological: denies: dizziness, fainting, headache, left sided numbness, left sided weakness, numbness, paresthesia, pre-existing deficit, right sided numbness, right sided weakness, seizure, speech problems, tingling, tremors, weakness, others Musculoskeletal: reports: others (Left knee pain); denies: back pain, gout, joint pain, joint swelling, muscle pain, muscle stiffness, neck pain Integumetry: denies: bruises, change in color, change in hair/nails, dryness, laceration, lesions, lumps, rash, wounds, others Allergic/Immunocompromised: denies: Difficulty Healing, Frequent Infections, Hives, Itching, others Hematologic/Lymphatic: denies: anemia, blood clots, easy bleeding, easy brui sing, swollen glands, others Endocrine: denies: excessive hunger, excessive sweating, excessive thirst, ex cessive urination, flushing, intolerance to cold, intolerance to heat, unexplained weight gain, unexplained weight loss, others Psychiatric: denies: anxiety, bipolar disorder, depression, hopeless, panic disorder, schizophrenia, sleepless, suicidal, others All Other Systems: Reviewed and Negative Vital Signs Vital Signs Date Time Temp Pulse Resp B/P (MAP) Pulse Ox O2 Delivery O2 Flow Rate FiO2 06/14/24 17:12 95 14 122/83 (96) 94 06/14/24 15:00 98.5 98.5 06/14/24 09:00 Room Air* 0 21 Physical Exam GENERAL: Awake, alert, oriented. LUNGS: Clear. CARDIOVASCULAR: Heart sounds are good. ABDOMEN: Soft. EXT: Left knee pain. Labs/Diagnostic Data Labs Test 06/14/24 12:45 06/14/24 10:45 06/14/24 10:16 Range/Units Urine Color Yellow Yellow Urine Clarity Clear Clear Urine pH 5.5 5.0-9.0 Urine Specific [place] 1.031 1.001-1.035 Urine Protein 1+ H Negative Urine Ketones Negative Negative Urine Blood Negative Negative /uL Urine Nitrite Negative Negative Urine Bilirubin Negative Negative Urine Urobilinogen 2 H Negative mg/dL Urine Leukocyte Esterase Negative Negative /uL Urine RBC 1 0 - 4 /hpf Urine WBC 2 0 - 5 /hpf Urine Squamous Epithelial Cells Few <5 /hpf Urine Bacteria None seen None Seen /hpf Urine Hyaline Casts Few 0 - 2 /lpf Urine Mucus Few None Seen Urine Glucose Normal Normal mg/dL White Blood Count 6.4 4.4-10.8 10^3/uL Red Blood Count 4.23 4.0-5.20 10^6/uL Hemoglobin 13.6 12.2-16.2 g/dL Hematocrit 40.9 36.0-46.0 % Mean Corpuscular Volume 96.6 80.0-100.0 fL Mean Corpuscular Hemoglobin 32.1 H 28.0-32.0 pg Mean Corpuscular Hemoglobin Concent 33.3 32.0-36.0 g/dL Red Cell Distribution Width 16.1 H 11.8-14.3 % Platelet Count 331 140-450 10^3/uL Mean Platelet Volume 7.8 6.9-10.8 fL Neutrophils (%) (Auto) 70.0 37.0-80.0 % Lymphocytes (%) (Auto) 19.1 10.0-50.0 % Monocytes (%) (Auto) 10.0 0.0-12.0 % Eosinophils (%) (Auto) 0.6 0.0-7.0 % Basophils (%) (Auto) 0.3 0.0-2.0 % Neutrophils # (Auto) 4.5 1.6-8.6 10 ^3/uL Lymphocytes # (Auto) 1.2 0.4-5.4 10 ^3/uL Monocytes # (Auto) 0.6 0-1.3 10 ^3/uL Eosinophils # (Auto) 0 0-0.8 10 ^3/uL Basophils # (Auto) 0 0-0.2 10 ^3/uL Nucleated Red Blood Cells 0.0 % D-Dimer, Quantitative 0.72 H 0.0-0.49 mg/L FEU Sodium Level 141 136-145 mmol/L Potassium Level 4.0 3.5-5.1 mmol/L Chloride Level 108 H 98-107 mmol/L Carbon Dioxide Level 24 20-31 mmol/L Anion Gap 9 5-15 Blood Urea Nitrogen 10 9-23 mg/dL Creatinine 0.76 0.550-1.02 mg/dL Glomerular Filtration Rate Calc 84 >90 mL/min BUN/Creatinine Ratio 13.2 10.0-20.0 Serum Glucose 102 74-106 mg/dL Calcium Level 9.2 8.7-10.4 mg/dL Magnesium Level 1.8 1.6-2.6 mg/dL Total Bilirubin 0.4 0.2-1.0 mg/dL Aspartate Amino Transferase (AST) 12 L 13-40 U/L Alanine Aminotransferase (ALT) 14 7-40 U/L Alkaline Phosphatase 98 46-116 U/L Creatine Kinase 79 34-145 U/L Troponin I High Sensitivity 8 </=34 ng/L Total Protein 6.6 5.7-8.2 g/dL Albumin 4.3 3.2-4.8 g/dL POC Glucose 107 H 70-106 mg/dl Assessment Atrial fibrillation. Diabetes. Hypertension. Rheumatoid arthritis. Plan/Recommendation I agree with your ongoing assessment and care of plan. Morphine and [place] for pain management. IV Amiodarone. Amlodipine. Additional plan as per the hospital course. A total of 45 minutes was spent reviewing the patient record, examining the patient, making a diagnostic and therapeutic plan, discussing this plan with medical personnel, following up on diagnostic studies and following the patient for clinical stability excluding any and all procedures. At least 50% of this time was spent in direct, [id number] contact. Plan discussed with: Patient BANSALJESSE MD Jun 14, 2024 20:39
[2024-06-15] MEDS: SODIUM CHLOR 0.9% PF (SALINE LOCK) 10ML VIAL/SYR IV SCH (00:11)
[2024-06-15] MEDS: ACCU-CHEK COMFORT CURVE STRIP VI SCH (00:12)
[2024-06-15] MEDS: InsuLIN REG 1unit/0.01ml Soln (100units/ml) SC SCH ×2 (00:26→06:48)
[2024-06-15] MEDS: INSULIN LANTUS (GLARGINE) 1 /0.01ml (100units/ml) SC SCH (00:27)
[2024-06-15] MEDS: GABAPENTIN 400 MG CAP PO SCH (00:30)
[2024-06-15] MEDS: AMIODARONE 450mg/250ml AE 250 ML IV SCH (03:36)
[2024-06-15 04:54] LABS: Basophils # (auto) 0 10 ^3/uL (0-0.2); Basophils % (auto) 0.4 % (0.0-2.0); Eosinophils # (auto) 0 10 ^3/uL (0-0.8); Eosinophils % (auto) 0.8 % (0.0-7.0); Hematocrit 37.7 % (36.0-46.0); Hemoglobin 12.5 g/dL (12.2-16.2); Lymphocytes # (auto) 1.1 10 ^3/uL (0.4-5.4); Lymphocytes % (auto) 20.2 % (10.0-50.0); Mean Corpuscular Hemoglobin 32.2 pg (28.0-32.0); Mean Corpuscular Hgb Conc. 33.2 g/dL (32.0-36.0); Monocytes # (auto) 0.6 10 ^3/uL (0-1.3); Monocytes % (auto) 10.2 % (0.0-12.0); Neutrophils # (auto) 3.8 10 ^3/uL (1.6-8.6); Neutrophils % (auto) 68.4 % (37.0-80.0); Nucleated Red Blood Cells % 0.1 %; Platelet Count (auto) 343 10^3/uL (140-450); Red Blood Cells 3.88 10^6/uL (4.0-5.20); Red Cell Distribution Width 16.4 % (11.8-14.3); White Blood Cell 5.6 10^3/uL (4.4-10.8)
[2024-06-15 05:14] LABS: Alanine Aminotransferase 13 U/L (7-40); Albumin 3.6 g/dL (3.2-4.8); Alkaline Phosphatase 97 U/L (46-116); Anion Gap 11 (5-15); Aspartate Aminotransferase 12 U/L (13-40); Bilirubin, Total 0.4 mg/dL (0.2-1.0); Blood Urea Nitrogen 8 mg/dL (9-23); Calcium 8.4 mg/dL (8.7-10.4); Carbon Dioxide 21 mmol/L (20-31); Chloride 109 mmol/L (98-107); Glucose 90 mg/dL (74-106); Potassium 3.8 mmol/L (3.5-5.1); Sodium 141 mmol/L (136-145); Total Protein 5.8 g/dL (5.7-8.2)
--- NOTE | 2024-06-15 06:44 | ECG ---
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
[2024-06-15 07:55] VITALS: PULSE 121; RESP 16; O2SAT 93
[2024-06-15] MEDS: amLODIPine BESYLATE 5 MG TAB PO SCH (10:08)
--- NOTE | 2024-06-15 13:48 | DVHPN2 ---
Reviewed: Care Plan, H&P, Labs, Medications, Previous Orders, Radiology Changes from previous H/P or p: No Changes Eyes: No Pain, No Vision change, No Conjunctivae inflammation, No Eyelid inflammation, No Other, No Redness ENT: No Ear pain, No Ear discharge, No Nose pain, No Nose discharge, No Nose congestion, No Mouth pain, No Mouth swelling, No Throat pain, No Throat swelling, No Other Cardiovascular: No Chest Pain, No Palpitations, No Orthopnea, No Paroxysmal Noc. Dyspnea, No Edema, No Lt Headedness, No Other Respiratory: No Cough, No Dry, No Shortness of breath, No SOB with excertion, No Wheezing, No Hemoptysis, No Pleuritic Pain, No Sputum, No Other Gastrointestinal: No Nausea, No Vomiting, No Abdominal Pain, No Diarrhea, No Constipation, No Melena, No Hematochezia, No Other Genitourinary: No Dysuria, No Frequency, No Incontinence, No Hematuria, No Retention, No Other Musculoskeletal: No other, No neck pain, No shoulder pain, No arm pain, No back pain, No hand pain; leg pain (left knee pain, S/P fall); No foot pain Skin: No Rash, No Lesions, No Jaundice, No Bruising, No Other Objective Vitals Vital Signs Date Time Temp Pulse Resp B/P (MAP) Pulse Ox O2 Delivery O2 Flow Rate FiO2 06/15/24 10:08 111/71 06/15/24 08:00 120 06/15/24 07:55 16 93 Nasal Cannula* 4 36 06/15/24 07:55 98.2 98.2 Intake/Output Intake and Output 06/15/24 07:00 Intake Total 16.667 ml Balance 16.667 ml Intake IV Total 16.667 ml Medications Current Medications Medications Dose Ordered Sig/Celine Route Start Time Stop Time Status Last Admin Dose Admin Sodium Chloride 10 ml Q8HR IV 06/14/24 22:00 06/15/24 05:36 10 ML Acetaminophen/ Hydrocodone Bitart 1 tab Q4HP PRN PO 06/14/24 18:45 Ondansetron HCl 4 mg Q4HP PRN IV 06/14/24 18:45 Docusate Sodium 100 mg BIDPRN PRN PO 06/14/24 18:45 Acetaminophen 650 mg Q6HP PRN PO 06/14/24 18:45 Nitroglycerin 0.4 mg Q5MINP PRN SL 06/14/24 18:45 Morphine Sulfate 2 mg Q30M PRN IV 06/14/24 18:45 Diagnostic Test (Pha) 1 strip ACHS 06/14/24 22:00 06/15/24 11:30 1 STRIP Insulin Human Regular HS SC 06/14/24 22:00 Insulin Human Regular AC SC 06/15/24 07:00 06/15/24 11:57 3 UNITS Dextrose 50 ml UD PRN IV 06/14/24 18:45 Patient Own Medication 1 puff DAILY PO 06/15/24 10:00 Gabapentin 800 mg TID PO 06/14/24 22:00 06/15/24 09:15 800 MG Insulin Glargine 38 units HS SC 06/14/24 22:00 Amlodipine Besylate 10 mg DAILY PO 06/15/24 10:00 06/15/24 10:08 10 MG Amiodarone HCl 250 ml @ 16.667 mls/ hr Q15H IV 06/15/24 01:00 06/15/24 03:36 16.667 MLS/HR Laboratory Results Laboratory Tests 06/15/24 03:51 Chemistry Test 06/15/24 03:51 Albumin 3.6 g/dL (3.2-4.8) Calcium Level 8.4 mg/dL (8.7-10.4) L Total Protein 5.8 g/dL (5.7-8.2) LFT Test 06/15/24 03:51 Alanine Aminotransferase (ALT) 13 U/L (7-40) Alkaline Phosphatase 97 U/L (46-116) Aspartate Amino Transferase (AST) 12 U/L (13-40) L Total Bilirubin 0.4 mg/dL (0.2-1.0) Urinalysis Test 06/14/24 12:45 Urine Color Yellow (Yellow) Urine Clarity Clear (Clear) Urine pH 5.5 (5.0-9.0) Urine Specific [place] 1.031 (1.001-1.035) Urine Protein 1+ (Negative) H Urine Ketones Negative (Negative) Urine Blood Negative /uL (Negative) Urine Nitrite Negative (Negative) Urine Bilirubin Negative (Negative) Urine Urobilinogen 2 mg/dL (Negative) H Urine Leukocyte Esterase Negative /uL (Negative) Urine RBC 1 /hpf (0 - 4) Urine WBC 2 /hpf (0 - 5) Urine Squamous Epithelial Cells Few /hpf (<5) Urine Bacteria None seen /hpf (None Seen) Urine Hyaline Casts Few /lpf (0 - 2) Urine Mucus Few (None Seen) Urine Glucose Normal mg/dL (Normal) Labs and/or images reviewed: Labs reviewed by me, Image(s) reviewed by me Assessment/Plan Assessment/Plan Atrial fibrillation with a RVR new onset: Amiodarone, cardiology consult by Dr. Varela appreciated Diabetes Hypertension Rheumatoid arthritis Chronic COPD Nicotine dependence Elevated D-dimer PE ruled out Time spent 65 minutes Patient is full code Advanced care planning time 20 minutes Plan discussed with: Patient Date of Service: Jun 15, 2024 Billing Provider: KULWINDER ROCHA MD Common Visit Codes: [id number] CARE 30-74 MIN KULWINDER ROCHA MD Jun 15, 2024 13:48
[2024-06-15] MEDS: HYDROcodone-ACET 5/325MG TAB PO PRN (17:25)
[2024-06-15 19:18] VITALS: BP 132/85; PULSE 125; RESP 26; TEMP 98.5; O2SAT 95
[2024-06-15 20:00] VITALS: PULSE 124; PULSE 125; RESP 26; O2SAT 95
[2024-06-15 21:00] VITALS: BP 139/85; PULSE 126; RESP 24; TEMP 98.4; O2SAT 93
--- NOTE | 2024-06-15 21:24 | DVHPN2 ---
Progress Note - Dictate Date Seen: Jun 15, 2024 Medical Necessity Reason Pt with a Central, PICC or Fol: No Subjective Patient was seen and evaluated in follow up. Patient is complaining of left knee pain, receiving [place] for pain management. Patient is on 4 LPM NC. Patient remains on Amiodarone drip. vital signs Vital Sign Date Time Temp Pulse Resp B/P (MAP) Pulse Ox O2 Delivery O2 Flow Rate FiO2 06/15/24 10:08 111/71 06/15/24 08:00 120 06/15/24 07:55 16 93 Nasal Cannula* 4 36 06/15/24 07:55 98.2 98.2 Total Intake and Output 06/14/24 06/14/24 06/15/24 15:00 23:00 07:00 Intake Total 16.667 ml Balance 16.667 ml medications Current Medications Medications Dose Ordered Sig/Celine Route Start Time Stop Time Status Last Admin Dose Admin Sodium Chloride 10 ml Q8HR IV 06/14/24 22:00 06/15/24 05:36 10 ML Acetaminophen/ Hydrocodone Bitart 1 tab Q4HP PRN PO 06/14/24 18:45 Ondansetron HCl 4 mg Q4HP PRN IV 06/14/24 18:45 Docusate Sodium 100 mg BIDPRN PRN PO 06/14/24 18:45 Acetaminophen 650 mg Q6HP PRN PO 06/14/24 18:45 Nitroglycerin 0.4 mg Q5MINP PRN SL 06/14/24 18:45 Morphine Sulfate 2 mg Q30M PRN IV 06/14/24 18:45 Diagnostic Test (Pha) 1 strip ACHS 06/14/24 22:00 06/15/24 11:30 1 STRIP Insulin Human Regular HS SC 06/14/24 22:00 Insulin Human Regular AC SC 06/15/24 07:00 06/15/24 11:57 3 UNITS Dextrose 50 ml UD PRN IV 06/14/24 18:45 Patient Own Medication 1 puff DAILY PO 06/15/24 10:00 Gabapentin 800 mg TID PO 06/14/24 22:00 06/15/24 09:15 800 MG Insulin Glargine 38 units HS SC 06/14/24 22:00 Amlodipine Besylate 10 mg DAILY PO 06/15/24 10:00 06/15/24 10:08 10 MG Amiodarone HCl 250 ml @ 16.667 mls/ hr Q15H IV 06/15/24 01:00 06/15/24 03:36 16.667 MLS/HR objective GENERAL: Awake, alert, oriented. LUNGS: Clear. CARDIOVASCULAR: Heart sounds are good. ABDOMEN: Soft. EXT: Left knee pain. laboratory and microbiology Laboratory Tests 06/15/24 03:51 Test 06/15/24 03:51 Range/Units Serum Glucose 90 74-106 mg/dL Problem List Atrial fibrillation. Diabetes. Hypertension. Rheumatoid arthritis. Assessment/Plan Continued all current supportive medical care. Morphine and [place] for pain management. IV Amiodarone. Amlodipine. Additional plan as per the hospital course. Plan discussed with: Patient JESSE BANSAL MD Jun 15, 2024 13:44
[2024-06-16] VITALS (8 sets, daily range): BP systolic 102–155; BP diastolic 55–96; PULSE 82–132; RESP 20–26; TEMP 98.4–99.6; O2SAT 90–96
--- NOTE | 2024-06-16 10:35 | DVHPN2 ---
Reviewed: Care Plan, H&P, Labs, Medications, Previous Orders, Radiology Changes from previous H/P or p: No Changes Eyes: No Pain, No Vision change, No Conjunctivae inflammation, No Eyelid inflammation, No Other, No Redness ENT: No Ear pain, No Ear discharge, No Nose pain, No Nose discharge, No Nose congestion, No Mouth pain, No Mouth swelling, No Throat pain, No Throat swelling, No Other Cardiovascular: No Chest Pain, No Palpitations, No Orthopnea, No Paroxysmal Noc. Dyspnea, No Edema, No Lt Headedness, No Other Respiratory: No Cough, No Dry, No Shortness of breath, No SOB with excertion, No Wheezing, No Hemoptysis, No Pleuritic Pain, No Sputum, No Other Gastrointestinal: No Nausea, No Vomiting, No Abdominal Pain, No Diarrhea, No Constipation, No Melena, No Hematochezia, No Other Genitourinary: No Dysuria, No Frequency, No Incontinence, No Hematuria, No Retention, No Other Musculoskeletal: No other, No neck pain, No shoulder pain, No arm pain, No back pain, No hand pain; leg pain (left knee pain, S/P fall); No foot pain Skin: No Rash, No Lesions, No Jaundice, No Bruising, No Other Objective Vitals Vital Signs Date Time Temp Pulse Resp B/P (MAP) Pulse Ox O2 Delivery O2 Flow Rate FiO2 06/16/24 05:00 99.1 132 26 153/93 (113) 94 99.1 06/15/24 20:00 Nasal Cannula* 4 36 Intake/Output Intake and Output 06/16/24 07:00 Intake Total 654.923 ml Balance 654.923 ml Intake Oral 305 ml IV Total 349.923 ml # Voids 1 Medications Current Medications Medications Dose Ordered Sig/Celine Route Start Time Stop Time Status Last Admin Dose Admin Sodium Chloride 10 ml Q8HR IV 06/14/24 22:00 06/16/24 06:23 10 ML Acetaminophen/ Hydrocodone Bitart 1 tab Q4HP PRN PO 06/14/24 18:45 06/16/24 08:06 1 TAB Ondansetron HCl 4 mg Q4HP PRN IV 06/14/24 18:45 Docusate Sodium 100 mg BIDPRN PRN PO 06/14/24 18:45 Acetaminophen 650 mg Q6HP PRN PO 06/14/24 18:45 Nitroglycerin 0.4 mg Q5MINP PRN SL 06/14/24 18:45 Morphine Sulfate 2 mg Q30M PRN IV 06/14/24 18:45 Diagnostic Test (Pha) 1 strip ACHS 06/14/24 22:00 06/16/24 06:24 1 STRIP Insulin Human Regular HS SC 06/14/24 22:00 06/15/24 21:08 4 UNITS Insulin Human Regular AC SC 06/15/24 07:00 06/15/24 17:48 3 UNITS Dextrose 50 ml UD PRN IV 06/14/24 18:45 Patient Own Medication 1 puff DAILY PO 06/15/24 10:00 Gabapentin 800 mg TID PO 06/14/24 22:00 06/16/24 06:23 800 MG Insulin Glargine 38 units HS SC 06/14/24 22:00 06/15/24 21:12 38 UNITS Amlodipine Besylate 10 mg DAILY PO 06/15/24 10:00 06/15/24 10:08 10 MG Amiodarone HCl 250 ml @ 16.667 mls/ hr Q15H IV 06/15/24 01:00 06/16/24 08:05 16.667 MLS/HR Amiodarone HCl 200 mg BID PO 06/16/24 10:00 Laboratory Results Laboratory Tests 06/15/24 03:51 Urinalysis Test 06/14/24 12:45 Urine Color Yellow (Yellow) Urine Clarity Clear (Clear) Urine pH 5.5 (5.0-9.0) Urine Specific [place] 1.031 (1.001-1.035) Urine Protein 1+ (Negative) H Urine Ketones Negative (Negative) Urine Blood Negative /uL (Negative) Urine Nitrite Negative (Negative) Urine Bilirubin Negative (Negative) Urine Urobilinogen 2 mg/dL (Negative) H Urine Leukocyte Esterase Negative /uL (Negative) Urine RBC 1 /hpf (0 - 4) Urine WBC 2 /hpf (0 - 5) Urine Squamous Epithelial Cells Few /hpf (<5) Urine Bacteria None seen /hpf (None Seen) Urine Hyaline Casts Few /lpf (0 - 2) Urine Mucus Few (None Seen) Urine Glucose Normal mg/dL (Normal) Labs and/or images reviewed: Labs reviewed by me, Image(s) reviewed by me Assessment/Plan Assessment/Plan Atrial fibrillation with RVR new onset: Amiodarone now converted to amiodarone tablets, cardiology consult by Dr. Varela appreciated Uncontrolled diabetes: Insulin sliding scale Hypertension Rheumatoid arthritis Right knee pain status post mechanical fall, knee x-ray negative Recurrent falls at home Chronic COPD Chronic current smoker: Counseling Elevated D-dimer PE ruled out Time spent 55 minutes Patient is full code Patient's daughter Shagufta [phone] who is financial aid coordinator at [facility] [facility] is at the bedside Physical therapy ordered Plan discussed with: Patient My Orders Orders - KULWINDER ROCHA MD Procedure Category Date Status Time Amiodarone Tablet PHA 06/16/24 In Process (Cordarone Tablet) 10:[address] 06/16/24 Logged 10:23 Date of Service: Jun 16, 2024 Billing Provider: KULWINDER ROCHA MD Common Visit Codes: [id number] INP/OBS CARE(HIGH) KULWINDER ROCHA MD Jun 16, 2024 10:35
[2024-06-16] MEDS: AMIODARONE HCL 200 MG TAB PO SCH (11:29)
--- NOTE | 2024-06-16 15:01 | DVH ---
EXAM: CT HEAD WITHOUT CONTRAST INDICATION: fall TECHNIQUE: CT of the head without intravenous contrast. Radiation Dose : 1. Head: CT Dose: CTDI volume is 53.99 mGy. Dose-length product is 863.9 mGy*cm The dose indicators for CT are the volume Computed Tomography (CT) Dose Index (CTDIvol) and the Dose Length Product (DLP), and are measured in units of mGy and mGy-cm, respectively. These indicators are not patient dose, but values generated from the CT scanner acquisition factors. The report includes radiation exposure data for exposures received during this examination. COMPARISON: None FINDINGS: There is no evidence of acute intracranial hemorrhage, extra-axial collection, mass effect, midline s hift, herniation or hydrocephalus. The ventricles, sulci and cisterns are age appropriate. The mcrae-white differentiation is intact. Patchy periventricular and subcortical white matter hypoattenuation is nonspecific but may be related to small vessel ischemic disease. The visualized paranasal sinuses and mastoid air cells are clear. The surrounding soft tissues and osseous structures are unremarkable. IMPRESSION: 1. No acute intracranial abnormality. Radiation optimization: All CT scans at this facility use at least one of these dose optimization gardenia hniques: automated exposure control mA and/or kV adjustment per patient size (includes targeted exam s where dose is matched to clinical indication) or iterative reconstruction.
[2024-06-16] MEDS: MORPHINE SULFATE INJ 2 MG/ml SYRG IV PRN (15:26)
--- NOTE | 2024-06-16 21:13 | DVHPN2 ---
Progress Note - Dictate Date Seen: Jun 16, 2024 Medical Necessity Reason Pt with a Central, PICC or Fol: No Subjective Patient was seen and evaluated in follow up. Patient is complaining of left knee pain, receiving Morphine for pain management. Patient is on 4 LPM NC. Patient was transitioned to oral Amiodarone. Patient is recommended to transfer to SNF for PT. vital signs Vital Sign Date Time Temp Pulse Resp B/P (MAP) Pulse Ox O2 Delivery O2 Flow Rate FiO2 06/16/24 11:31 117/74 06/16/24 09:00 99.1 84 20 93 99.1 06/15/24 20:00 Nasal Cannula* 4 36 Total Intake and Output 06/15/24 06/15/24 06/16/24 15:00 23:00 07:00 Intake Total 133.336 ml 121.667 ml 399.92 ml Balance 133.336 ml 121.667 ml 399.92 ml medications Current Medications Medications Dose Ordered Sig/Celine Route Start Time Stop Time Status Last Admin Dose Admin Sodium Chloride 10 ml Q8HR IV 06/14/24 22:00 06/16/24 11:45 10 ML Ondansetron HCl 4 mg Q4HP PRN IV 06/14/24 18:45 Docusate Sodium 100 mg BIDPRN PRN PO 06/14/24 18:45 Acetaminophen 650 mg Q6HP PRN PO 06/14/24 18:45 Nitroglycerin 0.4 mg Q5MINP PRN SL 06/14/24 18:45 Morphine Sulfate 2 mg Q30M PRN IV 06/14/24 18:45 Diagnostic Test (Pha) 1 strip ACHS 06/14/24 22:00 06/16/24 11:45 1 STRIP Insulin Human Regular HS SC 06/14/24 22:00 06/15/24 21:08 4 UNITS Insulin Human Regular AC SC 06/15/24 07:00 06/15/24 17:48 3 UNITS Dextrose 50 ml UD PRN IV 06/14/24 18:45 Patient Own Medication 1 puff DAILY PO 06/15/24 10:00 Gabapentin 800 mg TID PO 06/14/24 22:00 06/16/24 06:23 800 MG Insulin Glargine 38 units HS SC 06/14/24 22:00 06/15/24 21:12 38 UNITS Amlodipine Besylate 10 mg DAILY PO 06/15/24 10:00 06/16/24 11:31 10 MG Amiodarone HCl 250 ml @ 16.667 mls/ hr Q15H IV 06/15/24 01:00 06/16/24 08:05 16.667 MLS/HR Amiodarone HCl 200 mg BID PO 06/16/24 10:00 06/16/24 11:29 200 MG Morphine Sulfate 2 mg Q6HPRN PRN IV 06/16/24 12:45 objective GENERAL: Awake, alert, oriented. LUNGS: Clear. CARDIOVASCULAR: Heart sounds are good. ABDOMEN: Soft. EXT: Left knee pain. laboratory and microbiology Laboratory Tests 06/15/24 03:51 Test 06/15/24 03:51 Range/Units Serum Glucose 90 74-106 mg/dL Problem List Atrial fibrillation. Diabetes. Hypertension. Rheumatoid arthritis. Assessment/Plan Continued all current supportive medical care. Morphine and [place] for pain management. Amiodarone. Amlodipine. Additional plan as per the hospital course. Plan discussed with: Patient JESSE BANSAL MD Jun 16, 2024 14:06
[2024-06-17] VITALS (8 sets, daily range): BP systolic 105–131; BP diastolic 63–84; PULSE 80–127; RESP 16–20; TEMP 97.9–98.2; O2SAT 89–100
--- NOTE | 2024-06-17 12:08 | DVHPN2 ---
Reviewed: Care Plan, H&P, Labs, Medications, Previous Orders, Radiology Changes from previous H/P or p: No Changes Eyes: No Pain, No Vision change, No Conjunctivae inflammation, No Eyelid inflammation, No Other, No Redness ENT: No Ear pain, No Ear discharge, No Nose pain, No Nose discharge, No Nose congestion, No Mouth pain, No Mouth swelling, No Throat pain, No Throat swelling, No Other Cardiovascular: No Chest Pain, No Palpitations, No Orthopnea, No Paroxysmal Noc. Dyspnea, No Edema, No Lt Headedness, No Other Respiratory: No Cough, No Dry, No Shortness of breath, No SOB with excertion, No Wheezing, No Hemoptysis, No Pleuritic Pain, No Sputum, No Other Gastrointestinal: No Nausea, No Vomiting, No Abdominal Pain, No Diarrhea, No Constipation, No Melena, No Hematochezia, No Other Genitourinary: No Dysuria, No Frequency, No Incontinence, No Hematuria, No Retention, No Other Musculoskeletal: No other, No neck pain, No shoulder pain, No arm pain, No back pain, No hand pain; leg pain (left knee pain, S/P fall); No foot pain Skin: No Rash, No Lesions, No Jaundice, No Bruising, No Other Objective Vitals Vital Signs Date Time Temp Pulse Resp B/P (MAP) Pulse Ox O2 Delivery O2 Flow Rate FiO2 06/17/24 09:15 80 16 118/70 06/17/24 08:57 98.2 95 98.2 06/17/24 08:00 Nasal Cannula* 4 36 Intake/Output Intake and Output 06/17/24 07:00 Intake Total 966.667 ml Balance 966.667 ml Intake Oral 950 ml IV Total 16.667 ml # Voids 6 Medications Current Medications Medications Dose Ordered Sig/Celine Route Start Time Stop Time Status Last Admin Dose Admin Sodium Chloride 10 ml Q8HR IV 06/14/24 22:00 06/17/24 06:06 10 ML Ondansetron HCl 4 mg Q4HP PRN IV 06/14/24 18:45 Docusate Sodium 100 mg BIDPRN PRN PO 06/14/24 18:45 Acetaminophen 650 mg Q6HP PRN PO 06/14/24 18:45 Nitroglycerin 0.4 mg Q5MINP PRN SL 06/14/24 18:45 Morphine Sulfate 2 mg Q30M PRN IV 06/14/24 18:45 Diagnostic Test (Pha) 1 strip ACHS 06/14/24 22:00 06/17/24 06:17 1 STRIP Insulin Human Regular HS SC 06/14/24 22:00 06/16/24 20:59 4 UNITS Insulin Human Regular AC SC 06/15/24 07:00 06/16/24 15:58 6 UNITS Dextrose 50 ml UD PRN IV 06/14/24 18:45 Patient Own Medication 1 puff DAILY PO 06/15/24 10:00 Gabapentin 800 mg TID PO 06/14/24 22:00 06/17/24 06:06 800 MG Insulin Glargine 38 units HS SC 06/14/24 22:00 06/16/24 20:58 38 UNITS Amlodipine Besylate 10 mg DAILY PO 06/15/24 10:00 06/17/24 09:14 10 MG Amiodarone HCl 200 mg BID PO 06/16/24 10:00 06/17/24 09:14 200 MG Morphine Sulfate 2 mg Q6HPRN PRN IV 06/16/24 12:45 06/17/24 09:15 2 MG Laboratory Results Laboratory Tests 06/15/24 03:51 Urinalysis Test 06/14/24 12:45 Urine Color Yellow (Yellow) Urine Clarity Clear (Clear) Urine pH 5.5 (5.0-9.0) Urine Specific [place] 1.031 (1.001-1.035) Urine Protein 1+ (Negative) H Urine Ketones Negative (Negative) Urine Blood Negative /uL (Negative) Urine Nitrite Negative (Negative) Urine Bilirubin Negative (Negative) Urine Urobilinogen 2 mg/dL (Negative) H Urine Leukocyte Esterase Negative /uL (Negative) Urine RBC 1 /hpf (0 - 4) Urine WBC 2 /hpf (0 - 5) Urine Squamous Epithelial Cells Few /hpf (<5) Urine Bacteria None seen /hpf (None Seen) Urine Hyaline Casts Few /lpf (0 - 2) Urine Mucus Few (None Seen) Urine Glucose Normal mg/dL (Normal) Labs and/or images reviewed: Labs reviewed by me, Image(s) reviewed by me Assessment/Plan Assessment/Plan Atrial fibrillation with RVR new onset: Amiodarone now converted to amiodarone tablets, cardiology consult by Dr. Varela appreciated Uncontrolled diabetes: Insulin sliding scale Hypertension Rheumatoid arthritis Right knee pain status post mechanical fall, knee x-ray negative Recurrent falls at home Chronic COPD Chronic current smoker: Counseling Elevated D-dimer PE ruled out Time spent 55 minutes Patient is full code Patient's daughter Shagufta [phone] who is student outreach coordinator at [employer] is at the bedside Physical therapy recommended [facility] facility placement for rehab and the patient and the daughter agrees Plan discussed with: Patient My Orders Orders - KULWINDER ROCHA MD Procedure Category Date Status Time Morphine Sulfate PHA 06/16/24 In Process Injection 12:45 Date of Service: Jun 17, 2024 Billing Provider: KULWINDER ROCHA MD Common Visit Codes: [id number] INP/OBS CARE(HIGH) KULWINDER ROCHA MD Jun 17, 2024 12:08
--- NOTE | 2024-06-17 12:12 | DVHDS2 ---
Discharge Summary Date of Admission Jun 14, 2024 at 18:33 Date of Discharge: Jun 17, 2024 Admitting Diagnosis Fall at home right knee pain Wounds: Contusion right knee Labs/Diagnostic Data: Laboratory Results Test 06/17/24 11:07 06/15/24 03:51 06/14/24 12:45 06/14/24 10:45 POC Glucose 281 mg/dl (70-106) White Blood Count 5.6 10^3/uL (4.4-10.8) Red Blood Count 3.88 10^6/uL (4.0-5.20) Hemoglobin 12.5 g/dL (12.2-16.2) Hematocrit 37.7 % (36.0-46.0) Mean Corpuscular Volume 97.0 fL (80.0-100.0) Mean Corpuscular Hemoglobin 32.2 pg (28.0-32.0) Mean Corpuscular Hemoglobin Concent 33.2 g/dL (32.0-36.0) Red Cell Distribution Width 16.4 % (11.8-14.3) Platelet Count 343 10^3/uL (140-450) Mean Platelet Volume 8.3 fL (6.9-10.8) Neutrophils (%) (Auto) 68.4 % (37.0-80.0) Lymphocytes (%) (Auto) 20.2 % (10.0-50.0) Monocytes (%) (Auto) 10.2 % (0.0-12.0) Eosinophils (%) (Auto) 0.8 % (0.0-7.0) Basophils (%) (Auto) 0.4 % (0.0-2.0) Neutrophils # (Auto) 3.8 10 ^3/uL (1.6-8.6) Lymphocytes # (Auto) 1.1 10 ^3/uL (0.4-5.4) Monocytes # (Auto) 0.6 10 ^3/uL (0-1.3) Eosinophils # (Auto) 0 10 ^3/uL (0-0.8) Basophils # (Auto) 0 10 ^3/uL (0-0.2) Nucleated Red Blood Cells 0.1 % Sodium Level 141 mmol/L (136-145) Potassium Level 3.8 mmol/L (3.5-5.1) Chloride Level 109 mmol/L (98-107) Carbon Dioxide Level 21 mmol/L (20-31) Anion Gap 11 (5-15) Blood Urea Nitrogen 8 mg/dL (9-23) Creatinine 0.80 mg/dL (0.550-1.02) Glomerular Filtration Rate Calc 79 mL/min (>90) BUN/Creatinine Ratio 10.0 (10.0-20.0) Serum Glucose 90 mg/dL (74-106) Calcium Level 8.4 mg/dL (8.7-10.4) Total Bilirubin 0.4 mg/dL (0.2-1.0) Aspartate Amino Transferase (AST) 12 U/L (13-40) Alanine Aminotransferase (ALT) 13 U/L (7-40) Alkaline Phosphatase 97 U/L (46-116) Total Protein 5.8 g/dL (5.7-8.2) Albumin 3.6 g/dL (3.2-4.8) Urine Color Yellow (Yellow) Urine Clarity Clear (Clear) Urine pH 5.5 (5.0-9.0) Urine Specific [place] 1.031 (1.001-1.035) Urine Protein 1+ (Negative) Urine Ketones Negative (Negative) Urine Blood Negative /uL (Negative) Urine Nitrite Negative (Negative) Urine Bilirubin Negative (Negative) Urine Urobilinogen 2 mg/dL (Negative) Urine Leukocyte Esterase Negative /uL (Negative) Urine RBC 1 /hpf (0 - 4) Urine WBC 2 /hpf (0 - 5) Urine Squamous Epithelial Cells Few /hpf (<5) Urine Bacteria None seen /hpf (None Seen) Urine Hyaline Casts Few /lpf (0 - 2) Urine Mucus Few (None Seen) Urine Glucose Normal mg/dL (Normal) D-Dimer, Quantitative 0.72 mg/L FEU (0.0-0.49) Magnesium Level 1.8 mg/dL (1.6-2.6) Creatine Kinase 79 U/L (34-145) Troponin I High Sensitivity 8 ng/L (</=34) Other Laboratory Tests 06/15/24 03:51 Brief Hx & Hospital Course: 68-year-old female with a history of hypertension rheumatoid arthritis COPD chronic current smoker fell at home brought to the ER for right knee pain. Right knee x-rays negative for any fracture CT head is negative patient has new onset AFib started on amiodarone drip and converted to the tablets seen by bottle feeder Dr. Varela comorbid conditions appropriately managed. Patient received physical therapy and the physical therapist recommended shelter facility placement for physical therapy fall prevention and rehab. Discussed with the patient and her daughter Shagufta at the bedside and they are willing for rehab placement. Consults/Reason for consult Cardiology Dr. Varela Operations or Procedures CT head Condition at Discharge: Fair Final Diagnosis/Problems List Atrial fibrillation with RVR new onset: Amiodarone now converted to amiodarone tablets, cardiology consult by Dr. Varela appreciated Uncontrolled diabetes: Insulin sliding scale Hypertension Rheumatoid arthritis Right knee pain status post mechanical fall, knee x-ray negative Recurrent falls at home Chronic COPD Chronic current smoker: Counseling Elevated D-dimer PE ruled ou Discharge Disposition: Detention Facility Discharge Instruct/Medications Diet: Cardiac 2g Na,low cholest Activity: Light activity Follow Up/Referral: Follow up With the [facility] Medications: see list 35 (Time Taken for discharge summary 35 minutes) Discharge Statement: "Patient was advised to return to the ER or call 911 if any headaches, dizziness, shortness of breath, chest pain, abdominal pain, bleeding, fevers, or worsening of medical condition. Patient was counseled about treatment plan, medications, possible side effects, patientverbalized understanding. All questions were answered to the best of my ability. This discharge took greater then 30 minutes in planning, reviewing documentation, counseling the patient, and discussing with other team members." ASSESSMENT ASSESSMENT Hospital Course Uneventful Assessment Atrial fibrillation with RVR new onset: Amiodarone now converted to amiodarone tablets, cardiology consult by Dr. Varela appreciated Uncontrolled diabetes: Insulin sliding scale Hypertension Rheumatoid arthritis Right knee pain status post mechanical fall, knee x-ray negative Recurrent falls at home Chronic COPD Chronic current smoker: Counseling Elevated D-dimer PE ruled ou Date of Service: Jun 17, 2024 Billing Provider: KULWINDER ROCHA MD Common Visit Codes: [id number] DISCH DAY >30min KULWINDER ROCHA MD Jun 17, 2024 12:11
[2024-06-17] MEDS: HYDROcodone-ACET 5/325MG TAB PO PRN (16:52)
--- NOTE | 2024-06-17 18:29 | DVHPN2 ---
Progress Note - Dictate Date Seen: Jun 17, 2024 Medical Necessity Reason Pt with a Central, PICC or Fol: No Subjective Patient was seen and evaluated in follow up. No overnight events. Patient is complaining of LLE pain. No chest pain or palpitations. BS are fluctuating. vital signs Vital Sign Date Time Temp Pulse Resp B/P (MAP) Pulse Ox O2 Delivery O2 Flow Rate FiO2 06/17/24 16:35 98.2 125 18 127/82 (97) 89 98.2 06/17/24 08:00 Nasal Cannula* 4 36 Total Intake and Output 06/16/24 06/16/24 06/17/24 15:00 23:00 07:00 Intake Total 16.667 ml 950 ml 0 ml Balance 16.667 ml 950 ml 0 ml medications Current Medications Medications Dose Ordered Sig/Celine Route Start Time Stop Time Status Last Admin Dose Admin Sodium Chloride 10 ml Q8HR IV 06/14/24 22:00 06/17/24 14:32 10 ML Ondansetron HCl 4 mg Q4HP PRN IV 06/14/24 18:45 Docusate Sodium 100 mg BIDPRN PRN PO 06/14/24 18:45 Acetaminophen 650 mg Q6HP PRN PO 06/14/24 18:45 Nitroglycerin 0.4 mg Q5MINP PRN SL 06/14/24 18:45 Morphine Sulfate 2 mg Q30M PRN IV 06/14/24 18:45 Diagnostic Test (Pha) 1 strip ACHS 06/14/24 22:00 06/17/24 16:54 1 STRIP Insulin Human Regular HS SC 06/14/24 22:00 06/16/24 20:59 4 UNITS Insulin Human Regular AC SC 06/15/24 07:00 06/17/24 17:18 9 UNITS Dextrose 50 ml UD PRN IV 06/14/24 18:45 Patient Own Medication 1 puff DAILY PO 06/15/24 10:00 Gabapentin 800 mg TID PO 06/14/24 22:00 06/17/24 12:30 800 MG Insulin Glargine 38 units HS SC 06/14/24 22:00 06/16/24 20:58 38 UNITS Amlodipine Besylate 10 mg DAILY PO 06/15/24 10:00 06/17/24 09:14 10 MG Amiodarone HCl 200 mg BID PO 06/16/24 10:00 06/17/24 09:14 200 MG Acetaminophen/ Hydrocodone Bitart 1 tab Q6HPRN PRN PO 06/17/24 15:00 06/17/24 16:52 1 TAB objective GENERAL: Awake, alert, oriented. LUNGS: Clear. CARDIOVASCULAR: Heart sounds are good. ABDOMEN: Soft. EXT: Left knee pain. laboratory and microbiology Laboratory Tests 06/15/24 03:51 Test 06/15/24 03:51 Range/Units Serum Glucose 90 74-106 mg/dL Problem List Atrial fibrillation. Diabetes. Hypertension. Rheumatoid arthritis. Assessment/Plan Continued all current supportive medical care. Morphine and [place] for pain management. Amiodarone. Amlodipine. Additional plan as per the hospital course. Plan discussed with: Patient JESSE BANSAL MD Jun 17, 2024 18:29
== END 2024-06-17 21:10 | DRG 189 ==
LOC: EDBD 08:19 → ER 08:19 → EDSEX 08:19 → TELE 18:09 → TELE-WESTW 06-15 19:01
PROVIDERS: ADMIT Nurse Practitioner Family; ATTEND Family Medicine
DX: J96.21 Acute and chronic respiratory failure with hypoxia (principal); J98.11 Atelectasis; J44.0 Chronic obstructive pulmonary disease with (acute) lower respiratory infection; I48.0 Paroxysmal atrial fibrillation; M06.861 Other specified rheumatoid arthritis, right knee; M06.9 Rheumatoid arthritis, unspecified; I10 Essential (primary) hypertension; F17.210 Nicotine dependence, cigarettes, uncomplicated; Z79.4 Long term (current) use of insulin; Z95.1 Presence of aortocoronary bypass graft; Z80.3 Family history of malignant neoplasm of breast; W18.39XA Other fall on same level, initial encounter; Y93.89 Activity, other specified; Y92.098 Other place in other non-institutional residence as the place of occurrence of the external cause; Y99.8 Other external cause status; E11.65 Type 2 diabetes mellitus with hyperglycemia; Z79.899 Other long term (current) drug therapy
CPT/HCPCS: 36415; 70450; 71275; 73562; 80053; 81001; 82550; 82962; 83735; 84484; 85025; 85379; 93005; 97116; 97163; 97530; G0378; J1815